=== PATIENT | male | born 1965 | race Caucasian/White ===

== ENCOUNTER 2020-03-15 17:35 | Inpatient (IN) | payer OTHER, SELFPAY ==
[~2020-03-15] VITALS: Ht 180.3 cm; Wt 75.3 kg
[2020-03-15 17:35] VITALS: BP_SYST 146
[2020-03-15] MEDS ORDERED: NACL 0.9% 1,000 ML IV ONE (17:50)
[2020-03-15] MEDS ORDERED: HYDROXYCHLOROQUINE SULFATE 200 MG TABLET PO ONE (18:30)
[2020-03-15] MEDS ORDERED: AZITHROMYCIN 500 MG in NS 250 ML IV ONE ×2 (18:30→19:45)
[2020-03-15] MEDS ORDERED: cefTRIAXone 1 GM IVPB PREMIX 50 ML IV ONE (18:30)
[2020-03-15] MEDS ORDERED: VANCOMYCIN HCL 1,000 MG in NS 250 ML IV ONE (18:30)
[2020-03-15 18:55] LABS: BASOPHILS # (AUTO) 0.1 K/uL (0.0-0.2); BASOPHILS % (AUTO) 0.6 % (0.0-2.0); EOSINOPHILS # (AUTO) 0.3 K/uL (0.0-0.4); EOSINOPHILS % (AUTO) 2.2 % (0.0-4.0); HEMATOCRIT 46.7 % (36-54); HEMOGLOBIN 15.6 g/dL (14.0-18.0); LYMPHOCYTES # (AUTO) 1.1 K/uL (1.0-5.5); LYMPHOCYTES % (AUTO) 9.2 % (20.5-51.5); MEAN CORPUSCULAR HEMOGLOBIN 30 pg (27-31); MEAN CORPUSCULAR HGB CONC 33 % (32-36); MEAN CORPUSCULAR VOLUME 91 fL (79.0-98.0); MONOCYTES # (AUTO) 1.1 K/uL (0.0-1.0); MONOCYTES % (AUTO) 9.1 % (1.7-9.3); NEUTROPHILS # (AUTO) 9.8 K/uL (1.8-7.7); NEUTROPHILS % (AUTO) 78.9 % (40.0-70.0); PLATELET COUNT (AUTO) 266 K/uL (130-430); RED BLOOD CELL COUNT(AUTO) 5.12 MIL/uL (4.2-6.2); RED CELL DISTRIBUTION WIDTH 12.8 % (9.0-15.0); WHITE BLOOD COUNT (AUTO) 12.4 K/uL (4.8-10.8)
[2020-03-15 18:56] LABS: BILIRUBIN,URINE NEGATIVE (NEGATIVE); BLOOD, URINE NEGATIVE (NEGATIVE); CLARITY/URINE CLEAR (CLEAR); COLOR,URINE YELLOW (YELLOW); GLUCOSE,URINE NEGATIVE (NEGATIVE); KETONES,URINE NEGATIVE (NEGATIVE); LEUKOCYTE ESTERASE ,URINE NEGATIVE (NEGATIVE); NITRITE, URINE NEGATIVE (NEGATIVE); PH,URINE 5.5 (5.0-8.0); PROTEIN URINE NEGATIVE (NEGATIVE); UROBILINOGEN,URINE 0.2 (0.2-1.0)
[2020-03-15 18:57] LABS: CALCIUM 8.6 mg/dL (8.4-11.0); CREATININE 1.01 mg/dL (0.55-1.30); POTASSIUM 3.8 mmol/L (3.5-5.1)
[2020-03-15 19:03] LABS: ALBUMIN 3.3 g/dL (3.4-4.8); TOTAL BILIRUBIN 0.7 mg/dL (0.0-1.0)
[2020-03-15] MEDS ORDERED: AZITHROMYCIN 500 MG/VIAL (ZITHROMAX) IV ONE (19:28)
[2020-03-15] MEDS ORDERED: VANCOMYCIN HCL 1000 MG/VIAL IV ONE (19:28)
[2020-03-15 20:00] LABS: INR 1.2 (0.80-1.20); PROTHROMBIN TIME 11.6 SECS (9.5-12.5)
[2020-03-15] MEDS ORDERED: IPRATROPIUM/ALBUTEROL SULFATE 3 ML AMPUL.NEB (DUONEB) INH PRN (20:00)
[2020-03-15] MEDS ORDERED: TEMAZEPAM 15 MG CAPSULE PO PRN (20:15)
[2020-03-15] MEDS ORDERED: ENOXAPARIN SODIUM 40 MG/0.4 ML SYRINGE SUBCUT SCH (21:00)
[2020-03-15 21:04] VITALS: BP_SYST 132
[2020-03-15] MEDS: LR 1,000 ML IV SCH (21:11)
[2020-03-15 22:20] VITALS: BP_SYST 128
[2020-03-15] MEDS: PANTOPRAZOLE SODIUM 40 MG TAB PO SCH (22:45)
[2020-03-15] MEDS: CHOLECALCIFEROL (VITAMIN D3) 2,000 UNIT TABLET PO SCH (22:45)
[2020-03-15] MEDS: ASCORBIC ACID 500 MG TABLET PO SCH (22:45)
[2020-03-15] MEDS: HEPARIN SODIUM,PORCINE 5000 UNITS/ML VIAL SUBCUT SCH (22:45)
[2020-03-16] MEDS: LR 1,000 ML IV SCH ×2 (06:00→15:42)
[2020-03-16] MEDS: HEPARIN SODIUM,PORCINE 5000 UNITS/ML VIAL SUBCUT SCH ×3 (06:28→21:51)
[2020-03-16 06:50] LABS: BASOPHILS # (AUTO) 0.1 K/uL (0.0-0.2); BASOPHILS % (AUTO) 0.8 % (0.0-2.0); EOSINOPHILS # (AUTO) 0.2 K/uL (0.0-0.4); EOSINOPHILS % (AUTO) 2.8 % (0.0-4.0); HEMATOCRIT 43.2 % (36-54); HEMOGLOBIN 14.4 g/dL (14.0-18.0); LYMPHOCYTES # (AUTO) 1.8 K/uL (1.0-5.5); LYMPHOCYTES % (AUTO) 20.2 % (20.5-51.5); MEAN CORPUSCULAR HEMOGLOBIN 31 pg (27-31); MEAN CORPUSCULAR HGB CONC 33 % (32-36); MEAN CORPUSCULAR VOLUME 92 fL (79.0-98.0); MONOCYTES # (AUTO) 1.3 K/uL (0.0-1.0); MONOCYTES % (AUTO) 14.5 % (1.7-9.3); NEUTROPHILS # (AUTO) 5.5 K/uL (1.8-7.7); NEUTROPHILS % (AUTO) 61.7 % (40.0-70.0); PLATELET COUNT (AUTO) 224 K/uL (130-430); RED BLOOD CELL COUNT(AUTO) 4.71 MIL/uL (4.2-6.2); RED CELL DISTRIBUTION WIDTH 12.8 % (9.0-15.0); WHITE BLOOD COUNT (AUTO) 8.9 K/uL (4.8-10.8)
[2020-03-16 07:33] LABS: ERYTHROCYTE SEDIMENTATION RATE 4 MM/HR (0-15)
[2020-03-16 07:42] LABS: ALBUMIN 2.5 g/dL (3.4-4.8); CALCIUM 7.8 mg/dL (8.4-11.0); CREATININE 0.85 mg/dL (0.55-1.30); PHOSPHORUS 3.1 mg/dL (2.7-4.5); TOTAL BILIRUBIN 1.2 mg/dL (0.0-1.0)
[2020-03-16 08:00] VITALS: BP_SYST 127
[2020-03-16] MEDS: CHOLECALCIFEROL (VITAMIN D3) 2,000 UNIT TABLET PO SCH ×2 (09:00→21:48)
[2020-03-16] MEDS: ASCORBIC ACID 500 MG TABLET PO SCH ×2 (09:54→21:48)
[2020-03-16] MEDS: PANTOPRAZOLE SODIUM 40 MG TAB PO SCH ×2 (09:54→21:48)
[2020-03-16 12:00] VITALS: BP_SYST 110
[2020-03-16] MEDS: ACETAMINOPHEN 325 MG TABLET PO PRN (13:27)
[2020-03-16] MEDS ORDERED: guaiFENesin/DEXTROMETHORPHAN 10 ML UDC PO PRN (14:45)
[2020-03-16 16:00] VITALS: BP_SYST 107
[2020-03-16] MEDS ORDERED: DOXYCYCLINE HYCLATE 100 MG CAPSULE PO ONE (17:00)
[2020-03-16 18:11] LABS: C-REACTIVE PROTEIN QUANT 5.2 mg/dL (0-0.5)
[2020-03-16 20:00] VITALS: BP_SYST 121
[2020-03-16] MEDS: cefTRIAXone 1 GM in D5W 50 ML IV SCH (21:48)
[2020-03-17] VITALS: BP_SYST 124
[2020-03-17] MEDS: LR 1,000 ML IV SCH ×3 (02:00→22:00)
[2020-03-17] MEDS: HEPARIN SODIUM,PORCINE 5000 UNITS/ML VIAL SUBCUT SCH ×3 (06:41→22:00)
[2020-03-17 08:00] VITALS: BP_SYST 134
[2020-03-17] MEDS: ACETAMINOPHEN 325 MG TABLET PO PRN (08:12)
[2020-03-17] MEDS: DOXYCYCLINE HYCLATE 100 MG CAPSULE PO SCH ×2 (10:08→21:00)
[2020-03-17] MEDS: PANTOPRAZOLE SODIUM 40 MG TAB PO SCH ×2 (10:08→21:00)
[2020-03-17] MEDS: ASCORBIC ACID 500 MG TABLET PO SCH ×2 (10:08→21:00)
[2020-03-17] MEDS: CHOLECALCIFEROL (VITAMIN D3) 2,000 UNIT TABLET PO SCH ×2 (10:09→21:00)
[2020-03-17 12:00] VITALS: BP_SYST 112
[2020-03-17 16:00] VITALS: BP_SYST 116
[2020-03-17 20:00] VITALS: BP_SYST 113
[2020-03-17] MEDS: cefTRIAXone 1 GM in D5W 50 ML IV SCH (21:00)
[2020-03-18] VITALS (8 sets, daily range): BP systolic 115–135
[2020-03-18] MEDS: HEPARIN SODIUM,PORCINE 5000 UNITS/ML VIAL SUBCUT SCH ×3 (06:41→21:00)
[2020-03-18] MEDS: LR 1,000 ML IV SCH (06:50)
[2020-03-18 07:44] LABS: BASOPHILS # (AUTO) 0.1 K/uL (0.0-0.2); BASOPHILS % (AUTO) 0.8 % (0.0-2.0); EOSINOPHILS # (AUTO) 0.4 K/uL (0.0-0.4); EOSINOPHILS % (AUTO) 5.2 % (0.0-4.0); HEMATOCRIT 44.8 % (36-54); LYMPHOCYTES # (AUTO) 1.8 K/uL (1.0-5.5); LYMPHOCYTES % (AUTO) 22.8 % (20.5-51.5); MEAN CORPUSCULAR HEMOGLOBIN 31 pg (27-31); MEAN CORPUSCULAR HGB CONC 34 % (32-36); MEAN CORPUSCULAR VOLUME 92 fL (79.0-98.0); MONOCYTES # (AUTO) 0.8 K/uL (0.0-1.0); MONOCYTES % (AUTO) 10.5 % (1.7-9.3); NEUTROPHILS # (AUTO) 4.9 K/uL (1.8-7.7); NEUTROPHILS % (AUTO) 60.7 % (40.0-70.0); PLATELET COUNT (AUTO) 232 K/uL (130-430); RED BLOOD CELL COUNT(AUTO) 4.87 MIL/uL (4.2-6.2); RED CELL DISTRIBUTION WIDTH 13.1 % (9.0-15.0)
[2020-03-18 07:56] LABS: ALBUMIN 2.6 g/dL (3.4-4.8); CALCIUM 8.3 mg/dL (8.4-11.0); CREATININE 0.8 mg/dL (0.55-1.30); POTASSIUM 3.8 mmol/L (3.5-5.1); TOTAL BILIRUBIN 0.7 mg/dL (0.0-1.0)
[2020-03-18] MEDS: CHOLECALCIFEROL (VITAMIN D3) 2,000 UNIT TABLET PO SCH ×2 (09:20→20:40)
[2020-03-18] MEDS: ASCORBIC ACID 500 MG TABLET PO SCH ×2 (09:20→20:40)
[2020-03-18] MEDS: DOXYCYCLINE HYCLATE 100 MG CAPSULE PO SCH ×2 (09:20→20:40)
[2020-03-18] MEDS: PANTOPRAZOLE SODIUM 40 MG TAB PO SCH ×2 (09:20→20:40)
[2020-03-18] MEDS: cefTRIAXone 1 GM in D5W 50 ML IV SCH (20:40)
== END 2020-03-18 22:15 | disposition short-term general hospital (02) | DRG 871 ==
LOC: SED 17:35 → STU 19:40
PROVIDERS: ADMIT Internal Medicine; ATTEND Internal Medicine
DX: A41.9 Sepsis, unspecified organism (principal); J18.9 Pneumonia, unspecified organism; J96.01 Acute respiratory failure with hypoxia; D72.810 Lymphocytopenia; F17.210 Nicotine dependence, cigarettes, uncomplicated; R65.20 Severe sepsis without septic shock; Z20.828 Contact with and (suspected) exposure to other viral communicable diseases; Z80.0 Family history of malignant neoplasm of digestive organs
CPT/HCPCS: 36415; 36600; 71045; 80053; 81003; 82728; 82803-TC; 83605; 83615-TC; 83735-TC; 84100-TC; 85025; 85379; 85610-TC; 85651-TC; 85730-TC; 86140; 87040-TC; 93005; 96365; 96368; 99291; G0378; J0456; J0696; J1644; J3370; J7030; J7060; J7120; U0003-CS